=== PATIENT | female | born 1985 | race Asian ===

== ENCOUNTER 2017-06-09 22:47 | Emergency (ER) | payer OTHER ==
[~2017-06-09] VITALS: Ht 154.9 cm; Wt 125.2 kg
== END 2017-06-10 01:23 | disposition home or self-care (01) ==
LOC: ED 22:47
DX: S40.012A Contusion of left shoulder, initial encounter (principal); W01.0XXA Fall on same level from slipping, tripping and stumbling without subsequent striking against object, initial encounter; Y92.098 Other place in other non-institutional residence as the place of occurrence of the external cause
CPT/HCPCS: 99283